=== PATIENT | female | born 1970 | race Caucasian/White ===

== ENCOUNTER 2017-04-08 19:06 | Emergency (ER) | payer OTHER ==
--- NOTE | 2017-04-08 19:14 | PDOC ---
Rapid Medical Evaluation Time Seen by Provider: 04/08/17 19:08 Medical Evaluation: 04/08/17 19:09 I have performed a brief in-person evaluation of this patient. The patient presents with a chief complaint of: Pertinent physical exam findings: Denies LOC. Hematoma present to right zygomatic. No malalignment of mandible. Right hand 5th digit abrasion and contracted. I have ordered the following: xray, tetanus booster The patient will proceed to the ED for further evaluation. Discharge Disposition - Diagnosis Hand pain, right - Referrals - Patient Instructions - Post Discharge Activity
[2017-04-08] MEDS ORDERED: DIPHTH,PERTUSS(ACELL),TET 0.5 ML DISP.SYRIN IM ONE (19:15)
[2017-04-08 19:17] VITALS: BP 121/94; PULSE 95; TEMP 97.9; BMI 19.7
--- NOTE | 2017-04-08 20:59 | PDOC ---
History of Present Illness - General Chief Complaint: Pain Stated Complaint: FALL INJURY Time Seen by Provider: 04/08/17 19:08 History Source: Patient Exam Limitations: No Limitations - History of Present Illness Initial Comments: 04/08/17 20:59 47-year-old female presents the ED status post mechanical fall landing on her right hand sustaining discomfort to her right fifth digit. Patient also complaining of an abrasion to the right fourth digit. Patient states is not up- to-date on tetanus and denies any LOC or dizziness prior to the fall. Occurred: reports: just prior to arrival Severity: reports: mild Pain Location: reports: upper extremity Method of Injury: Yes: fall Loss of Consciousness: no loss of consciousness Associated Symptoms (Fall): denies symptoms Past History - Travel Traveled outside of the country in the last 30 days: No - Past Medical History Allergies/Adverse Reactions: Allergies Allergy/AdvReac Type Severity Reaction Status Date / Time No Known Allergies Allergy Verified 04/08/17 19:13 Home Medications: Ambulatory Orders NK [No Known Home Medication] 04/08/17 COPD: No Other medical history: Pt denies - Suicide/Smoking/Psychosocial Hx Smoking History: Never smoked Have you smoked in the past 12 months: No If you are a former smoker, when did you quit?: 5 years ago Information on smoking cessation initiated: No Hx Alcohol Use: No Drug/Substance Use Hx: No Substance Use Type: None Patient Lives Alone: No Lives with/in: spouse/SO Review of Systems - Review of Systems Able to Perform ROS?: Yes Musculoskeletal: Yes: Joint Pain (rt 5th digit) Integumentary: No: Symptoms Reported Neurological: No: Symptoms reported *Physical Exam - Vital Signs Last Vital Signs Temp Pulse Resp BP Pulse Ox 97.9 F 95 H 20 121/94 99 04/08/17 19:14 04/08/17 19:14 04/08/17 19:14 04/08/17 19:14 04/08/17 19:14 - Physical Exam General Appearance: Yes: Nourished, Appropriately Dressed. No: Apparent Distress Integumentary: positive: Swelling (rt 5th digitat pip joint), Ecchymosis (rt 5th digit) Neurologic: positive: Motor Strength 5/5 (right 5th digit with LROM with flexion of the PIP joint) Procedures - Splinting Splint Location: Right: Hand Pre-Proc Neuro Vasc Exam: normal Hand-Made Type: orthoglass Splint Type: Yes: Short Arm Ashish Bandage: 3" Sling: No ED Treatment Course - ADDITIONAL ORDERS Additional order review: Laboratory Results 04/08/17 19:20 Urine HCG, Qual Negative Medical Decision Making - Medical Decision Making 04/08/17 21:02 Pt with injury to rt 5th digit. Xray shows communited fx of the proximal phalanx. Splint placed to rt hand. referral given for Dr. Vera. *DC/Admit/Observation/Transfer Diagnosis at time of Disposition: Finger fracture, right Qualifiers: Encounter type: initial encounter Finger: little finger Fracture type: closed Phalanx: proximal Fracture alignment: nondisplaced Qualified Code(s): S62.646A - Nondisplaced fracture of proximal phalanx of right little finger, initial encounter for closed fracture - Discharge Dispostion Disposition: HOME Condition at time of disposition: Good - Referrals Referrals: Howard Vera MD [Staff Physician] - - Patient Instructions Printed Discharge Instructions: DI for Finger Fracture Additional Instructions: Please elevate extremity to decrease swelling. Take tylenol for pain and follow up with referred orthopedist - Post Discharge Activity
== END 2017-04-08 21:12 | disposition home or self-care (01) ==
LOC: JERFT 19:06
PROC: 2W3CX1Z Immobilization of Right Lower Arm using Splint (ICD-10-PCS; principal; 2017-04-08)
DX: S62.646A Nondisplaced fracture of proximal phalanx of right little finger, initial encounter for closed fracture (principal); W19.XXXA Unspecified fall, initial encounter; Y93.89 Activity, other specified; Y92.89 Other specified places as the place of occurrence of the external cause; Y99.8 Other external cause status
CPT/HCPCS: 73130-TC-RT-FY; 84703; 90715; 99282-25